=== PATIENT | female | born 1960 | race Caucasian/White ===

== ENCOUNTER 2016-08-05 16:50 | Emergency (ER) | payer OTHER ==
[2016-08-05] MEDS ORDERED: LORAZEPAM 1 MG TABLET ONE (18:47)
[2016-08-05 18:59] LABS: ABSOLUTE NEUTROPHIL COUNT 5.3 K/mm3 (1.8-7.7); BASO % 0.4 % (0.2-1.0); EOS # 0.1 (0.0-0.5); EOS % 1.1 % (0.9-2.9); HEMATOCRIT 46.1 % (37.0-47.0); HEMOGLOBIN 15.3 gm/l (12.0-16.0); IMM NEUT% 0.3 % (0-1); LYMPH # 1.3 (1.0-4.8); LYMPH % 18.5 % (15-45); MEAN CELL VOLUME 85.5 fl (81.0-99.0); MEAN CORPUSCULAR HEMOGLOBIN 28.4 pg (27.0-31.0); MEAN CORPUSCULAR HGB CONC 33.2 g/dl (33.0-37.0); MONO # 0.5 (0.0-0.8); MONO % 6.2 % (4-12); NEUT % 73.5 % (43-75); PLATELET COUNT 211 K/mm3 (130-400); RED CELL DISTRIBUTION WIDTH 13.5 % (11.5-14.5)
[2016-08-05 19:15] LABS: SPECIFIC GRAVITY 1.015 (1.001-1.030); URINE BILIRUBIN NEGATIVE (NEGATIVE); URINE BLOOD 1+ (NEGATIVE); URINE GLUCOSE (UA) NEGATIVE (NEGATIVE); URINE LEUKOCYTE ESTERASE NEGATIVE (NEGATIVE); URINE NITRITE POSITIVE (NEGATIVE); URINE PROTEIN 1+ (NEGATIVE); URINE UROBILINOGEN NORMAL (0-1 mg/dl)
[2016-08-05 19:18] LABS: ALB/GLOB RATIO 1.5 (>1.0); ALBUMIN 4.5 gm/dL (3.5-5.7); CALCIUM 10.2 mg/dL (8.6-10.3); URINE APPEARANCE SL CLOUDY; URINE COLOR YELLOW
[2016-08-05 19:22] LABS: URINE RBC 0 /hpf
[2016-08-05 19:23] LABS: URINE EPITHELIAL CELLS 0 /hpf; URINE WBC 0-2 /hpf
[2016-08-05] MEDS ORDERED: CEPHALEXIN 500 MG CAPSULE ONE (19:27)
--- NOTE | 2016-08-05 19:30 | CT ---
Name: MATA ANG Exam: CT head without contrast Comparison: None Clinical history: mental status change Technique: Helical CT was performed through the head. Angled axial reconstructions were obtained. Sagittal and coronal reconstructions were obtained as well. No contrast was given. An automated dose reduction technique was used to minimize patient radiation dose. Findings: There is no shift of the midline structures. Ventricles are of normal size and configuration. There is no mass, mass effect or hemorrhage. Cisterns are uneffaced. Posterior fossa is unremarkable. There is no fracture. Visualized paranasal sinuses and mastoid air cells are within normal limits. Impression: Negative unenhanced CT of head Note: The above report was uploaded to [facility]'s electronic medical records system at 1926 hours.
[2016-08-05 19:58] LABS: AMPHETAMINES/METHAMPHETAMINES POSITIVE (NEGATIVE); COCAINE NEGATIVE (NEGATIVE); MARIJUANA NEGATIVE (NEGATIVE); METHADONE NEGATIVE (NEGATIVE); OPIATES NEGATIVE (NEGATIVE); TRICYCLIC ANTIDEPRESSANTS NEGATIVE (NEGATIVE)
[2016-08-05 20:04] LABS: URINE BACTERIA 4+
== END 2016-08-05 20:21 | disposition home or self-care (01) ==
LOC: ED 16:50
DX: F32.9 Major depressive disorder, single episode, unspecified (principal); N39.0 Urinary tract infection, site not specified; I10 Essential (primary) hypertension; R51 Headache; F15.10 Other stimulant abuse, uncomplicated; Z91.14 Patient's other noncompliance with medication regimen
CPT/HCPCS: 85025; 87086; 80305; 80053; 87186; 84443; 81001; 70450; 99284; 99283; A9270 ×2